=== PATIENT | female | born 1995 | race Caucasian/White ===

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

== ENCOUNTER 2017-02-01 09:06 | Emergency (ER) | payer BC, OTHER ==
[~2017-02-01] VITALS: Ht 165.1 cm; Wt 59.9 kg
[2017-02-01] MEDS ORDERED: SERT50TA PO (09:29)
[2017-02-01 10:47] LABS: BASO # 0.1 K/mm3 (0.0-0.2); BASO % 0.5 % (0.0-1.0); EOS # 0.2 K/mm3 (0.0-0.50); EOS % 1.5 % (0.0-3.0); LARGE UNSTAINED CELL # 0.1 K/mm3 (0.0-0.4); LARGE UNSTAINED CELL % 1.1 % (0.0-4.0); LYMPH # 2.3 K/mm3 (1.5-6.5); LYMPH % 19.4 % (24.0-44.0); MEAN CORPUSCULAR HEMOGLOBIN 29.1 pg (27.0-33.0); MEAN CORPUSCULAR HGB CONC 32.1 g/dl (32.0-36.5); MEAN CORPUSCULAR VOLUME 90.6 fl (80.0-96.0); MONO # 0.4 K/mm3 (0.0-0.8); MONO % 3.2 % (0.0-5.0); NEUTROPHILS # 8.3 K/mm3 (1.8-7.7); NEUTROPHILS % 74.3 % (36.0-66.0); PLATELET COUNT, AUTOMATED 257 k/mm3 (150-450); WHITE BLOOD COUNT 11.2 K/mm3 (4.0-10.0)
[2017-02-01 10:57] LABS: CONTROL LINE HCG INT CTR LINE PRESENT
[2017-02-01 11:07] LABS: ANION GAP 7 MEQ/L (8-16); BLOOD UREA NITROGEN 5 MG/DL (7-18); CALCIUM LEVEL 9.1 MG/DL (8.5-10.1); CARBON DIOXIDE LEVEL 28 MEQ/L (21-32); CHLORIDE LEVEL 105 MEQ/L (98-107); CREATININE FOR GFR 0.76 MG/DL (0.55-1.02); GLUCOSE, FASTING 82 MG/DL (70-105); POTASSIUM SERUM 3.9 MEQ/L (3.5-5.1); SODIUM LEVEL 140 MEQ/L (136-145)
--- NOTE | 2017-02-01 11:46 | REP ---
CT Head without contrast HISTORY: Syncope COMPARISON: 05/21/2011 There is no intraparenchymal hemorrhage, acute infarct, mass or midline shift. The ventricular system is normal in appearance. There is no extra cerebral collection. There is no fracture. The visualized sinuses are clear. IMPRESSION: There is no intracranial lesion. Signed by Braeden Ramos MD 02/01/2017 11:37 A
[2017-02-01 12:14] VITALS: BP 129/70
--- NOTE | 2017-02-01 12:17 | REP ---
SINGLE VIEW CHEST: There is no evidence of acute infiltrate. No pleural effusion is seen. The heart is normal in size. The mediastinal silhouette is unremarkable. The visualized osseous structures are intact. IMPRESSION: No acute pulmonary disease. Signed by Suleman Mathis MD 02/01/2017 07:46 P
--- NOTE | 2017-02-01 16:31 | ECGEPIP ---
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
== END 2017-02-01 12:18 | disposition home or self-care (01) ==
LOC: M ED 10:52
DX: R55 Syncope and collapse (principal); J45.909 Unspecified asthma, uncomplicated; F33.9 Major depressive disorder, recurrent, unspecified; S40.212A Abrasion of left shoulder, initial encounter; W19.XXXA Unspecified fall, initial encounter; Y92.89 Other specified places as the place of occurrence of the external cause; Y93.89 Activity, other specified; Y99.8 Other external cause status; Z79.899 Other long term (current) drug therapy; Z88.1 Allergy status to other antibiotic agents

== ENCOUNTER → 2017-03-19 | Outpatient (REF) | payer OTHER ==
[~2017-03-19] MED LIST changes: +CIPR-249 PO; -CIPR500T89 PO; +IBUP-1022 PO; -IBUP600T26 PO; +SERT50TA PO
== END ==
LOC: M LAB REF 13:53
PROVIDERS: ATTEND Physician Assistant Medical
DX: R30.0 Dysuria (principal)

== ENCOUNTER → 2017-04-11 | Outpatient (REF) | payer BC, OTHER | LOC: M LAB REF 11:21 | PROVIDERS: ATTEND Nurse Practitioner Family | DX: Z01.419 Encounter for gynecological examination (general) (routine) without abnormal findings (principal) ==

== ENCOUNTER 2017-08-17 08:57 | Day surgery (SDC) | payer BC, OTHER ==
[2017-08-17 10:37] LABS: CONTROL LINE UCG INT CTR LINE PRESENT
[2017-08-17] MEDS ORDERED: BUPIVACAINE HCL 0.5% 30 ML VIAL As Ordered (12:12)
[2017-08-17] MEDS ORDERED: fentaNYL 100 MCG/2 ML INJECTION (J3010) As Ordered ×2 (12:40→13:24)
[2017-08-17] MEDS ORDERED: dexameTHASONE 4 MG/ML 1ML VIAL (J1100) As Ordered ×2 (12:40)
[2017-08-17] MEDS ORDERED: MIDAZOLAM INJ 2 MG/2 ML VIAL (J2250) As Ordered (12:40)
[2017-08-17] MEDS ORDERED: PROPOFOL 200 MG/20 ML VIAL As Ordered (12:56)
[2017-08-17] MEDS ORDERED: LIDOCAINE 2% INJ 100 MG/5 ML SDV (FOR ANES.) As Ordered (12:57)
[2017-08-17] MEDS ORDERED: ONDANSETRON 4MG/2ML VIAL (J2405) As Ordered (12:57)
[2017-08-17] MEDS ORDERED: ONDANSETRON 4MG/2ML VIAL (J2405) IV (14:00)
[2017-08-17] MEDS ORDERED: LR 1,000 ML IV (14:00)
[2017-08-17] MEDS ORDERED: PERCOCET 5MG/325MG TAB PO (14:00)
[2017-08-17] MEDS ORDERED: fentaNYL 100 MCG/2 ML INJECTION (J3010) IV (14:00)
[2017-08-17] MEDS: IBUPROFEN 800 MG TAB PO (14:17)
== END 2017-08-17 17:11 | disposition home or self-care (01) ==
LOC: M SDC 08:57
DX: J35.01 Chronic tonsillitis (principal); J45.909 Unspecified asthma, uncomplicated; N17.9 Acute kidney failure, unspecified; T36.8X5A Adverse effect of other systemic antibiotics, initial encounter; F41.9 Anxiety disorder, unspecified; F32.9 Major depressive disorder, single episode, unspecified; Z88.1 Allergy status to other antibiotic agents; Z79.899 Other long term (current) drug therapy
CPT/HCPCS: 42826

== ENCOUNTER → 2017-09-02 | Outpatient (REF) | payer BC, OTHER ==
[2017-09-02 21:55] LABS: APPEARANCE, URINE HAZY (CLEAR); BACTERIA, URINE AUTO 2+ (NEGATIVE); BILIRUBIN, URINE AUTO NEGATIVE (NEGATIVE); BLOOD, URINE BLOOD NEGATIVE (NEGATIVE); COLOR, URINE YELLOW (YELLOW); GLUCOSE, URINE (UA) AUTO NEGATIVE (NEGATIVE); KETONE, URINE AUTO NEGATIVE (NEGATIVE); LEUKOCYTE ESTERASE, URINE AUTO NEGATIVE (NEGATIVE); MUCUS, URINE SMALL (NEGATIVE); NITRITE, URINE AUTO POSITIVE (NEGATIVE); PROTEIN, URINE AUTO NEGATIVE (NEGATIVE); RBC, URINE AUTO 2 /HPF (0-3); SPECIFIC GRAVITY URINE AUTO 1.019 (1.002-1.035); SQUAMOUS EPITHELIAL CELL UR AU 1 /HPF (0-6); UROBILINOGEN, URINE AUTO 0.2 mg/dL (0.0-2.0); WBC, URINE AUTO 20 /HPF (0-3)
== END ==
LOC: M LAB REF 21:29
DX: R30.0 Dysuria (principal)
CPT/HCPCS: 81001

== ENCOUNTER → 2018-01-11 | Outpatient (REF) | payer OTHER ==
[2018-01-11 14:34] LABS: AMORPHOUS SEDIMENT SMALL (NEGATIVE); APPEARANCE, URINE CLOUDY (CLEAR); BACTERIA, URINE AUTO 2+ (NEGATIVE); BILIRUBIN, URINE AUTO NEGATIVE (NEGATIVE); BLOOD, URINE BLOOD 3+ (NEGATIVE); COLOR, URINE YELLOW (YELLOW); GLUCOSE, URINE (UA) AUTO NEGATIVE (NEGATIVE); KETONE, URINE AUTO NEGATIVE (NEGATIVE); LEUKOCYTE ESTERASE, URINE AUTO 3+ (NEGATIVE); MUCUS, URINE SMALL (NEGATIVE); NITRITE, URINE AUTO NEGATIVE (NEGATIVE); PROTEIN, URINE AUTO 1+ mg/dL (NEGATIVE); RBC, URINE AUTO 100 /HPF (0-3); SPECIFIC GRAVITY URINE AUTO 1.014 (1.002-1.035); SQUAMOUS EPITHELIAL CELL UR AU 3 /HPF (0-6); UROBILINOGEN, URINE AUTO 0.2 mg/dL (0.0-2.0); WBC, URINE AUTO TNTC /HPF (0-3)
== END ==
LOC: M LAB REF 12:55
DX: N39.0 Urinary tract infection, site not specified (principal)

== ENCOUNTER → 2018-02-09 | Outpatient (REF) | payer OTHER | LOC: M LAB REF 13:32 | DX: N39.0 Urinary tract infection, site not specified (principal) ==

== ENCOUNTER → 2018-05-03 | Outpatient (REF) | payer OTHER ==
[2018-05-03 15:22] LABS: CHLAMYDIA DNA AMPLIFICATION POSITIVE (NEGATIVE); GC DNA AMPLIFICATION NEGATIVE (NEGATIVE)
== END ==
LOC: M SFHCWAGY 11:52
DX: Z12.4 Encounter for screening for malignant neoplasm of cervix (principal)

== ENCOUNTER → 2018-06-29 | Outpatient (REF) | payer OTHER ==
[2018-06-29 15:32] LABS: CHLAMYDIA DNA AMPLIFICATION NEGATIVE (NEGATIVE); GC DNA AMPLIFICATION NEGATIVE (NEGATIVE)
== END ==
LOC: M SFHCWAGY 13:12
DX: Z11.3 Encounter for screening for infections with a predominantly sexual mode of transmission (principal)

== ENCOUNTER → 2018-06-29 | Outpatient (REF) | payer OTHER ==
[2018-06-29 14:18] LABS: HIV 1&2 SCREEN CENTAUR NEGATIVE (NEGATIVE)
== END ==
LOC: M SFHCWAGY 11:29
DX: Z11.3 Encounter for screening for infections with a predominantly sexual mode of transmission (principal); Z11.4 Encounter for screening for human immunodeficiency virus [HIV]

== ENCOUNTER → 2018-09-14 | Outpatient (REF) | payer OTHER ==
[~2018-09-14] MED LIST changes: +MONOTAB PO; -ZOFR20TA PO; +ZOFR4TAB16 PO
[2018-09-14 12:26] LABS: HEMATOCRIT 39.8 % (36.0-47.0); HEMOGLOBIN 12.9 g/dl (12.0-15.5); MEAN CORPUSCULAR HEMOGLOBIN 28.9 pg (27.0-33.0); MEAN CORPUSCULAR HGB CONC 32.4 g/dl (32.0-36.5); MEAN CORPUSCULAR VOLUME 89.2 fl (80.0-96.0); PLATELET COUNT, AUTOMATED 263 10^3/uL (150-450); RED BLOOD COUNT 4.46 10^6/uL (4.00-5.40); WHITE BLOOD COUNT 10.3 10^3/uL (4.0-10.0)
[2018-09-14 13:04] LABS: HCG, SERUM QUANTITATIVE 34228 MIU/ML
[2018-09-17 10:49] LABS: RUBELLA IgG QUALITATIVE IMMUNE (IMMUNE)
[2018-09-17 11:17] LABS: HEPATITIS C VIRUS ABY INDEX 0.1 INDEX (<0.8)
[2018-09-17 11:18] LABS: HIV 1&2 SCREEN CENTAUR NEGATIVE (NEGATIVE)
== END ==
LOC: M LAB REF 12:12
PROVIDERS: ATTEND Obstetrics & Gynecology
DX: O36.80X0 Pregnancy with inconclusive fetal viability, not applicable or unspecified (principal)

== ENCOUNTER → 2018-10-18 | Outpatient (REF) | payer OTHER | LOC: M LAB REF 16:45 | PROVIDERS: ATTEND Obstetrics & Gynecology | DX: Z34.01 Encounter for supervision of normal first pregnancy, first trimester (principal); Z3A.01 Less than 8 weeks gestation of pregnancy ==

== ENCOUNTER → 2018-11-17 | Outpatient (REF) | payer OTHER ==
[2018-11-17 20:45] LABS: INFLUENZA A AMPLIFICATION NEGATIVE (NEGATIVE); INFLUENZA B AMPLIFICATION NEGATIVE (NEGATIVE)
== END ==
LOC: M LAB REF 13:54
PROVIDERS: ATTEND Physician Assistant Medical
DX: J11.1 Influenza due to unidentified influenza virus with other respiratory manifestations (principal)

== ENCOUNTER → 2018-12-28 | Outpatient (CLI) | payer BC, OTHER ==
[~2018-12-28] MED LIST changes: +SERT-141 PO; -SERT50TA PO
[2019-01-02 00:06] LABS: ANTI PARVO VIRUS LEVEL IGG 5.2 index (0.0-0.8); ANTI PARVO VIRUS LEVEL IgM 0.2 index (0.0-0.8)
== END ==
LOC: M LAB 18:52
PROVIDERS: ATTEND Advanced Practice Midwife
DX: Z20.828 Contact with and (suspected) exposure to other viral communicable diseases (principal); Z3A.00 Weeks of gestation of pregnancy not specified

== ENCOUNTER → 2019-01-10 | Outpatient (REF) | payer OTHER ==
[2019-01-12 00:06] LABS: ANTI PARVO VIRUS LEVEL IGG 4.8 index (0.0-0.8); ANTI PARVO VIRUS LEVEL IgM 0.1 index (0.0-0.8)
== END ==
LOC: M LAB REF 12:58
PROVIDERS: ATTEND Nurse Practitioner Women's Health
DX: Z20.89 Contact with and (suspected) exposure to other communicable diseases (principal)

== ENCOUNTER → 2019-02-08 | Outpatient (REF) | payer OTHER | LOC: M LAB REF 15:25 | PROVIDERS: ATTEND Obstetrics & Gynecology | DX: N39.0 Urinary tract infection, site not specified (principal) ==

== ENCOUNTER → 2019-02-14 | Outpatient (CLI) | payer BC, OTHER ==
[2019-02-14 09:31] LABS: HEMATOCRIT 33.9 % (36.0-47.0); MEAN CORPUSCULAR HEMOGLOBIN 31.3 pg (27.0-33.0); MEAN CORPUSCULAR HGB CONC 32.4 g/dl (32.0-36.5); MEAN CORPUSCULAR VOLUME 96.3 fl (80.0-96.0); PLATELET COUNT, AUTOMATED 182 10^3/uL (150-450); RED BLOOD COUNT 3.52 10^6/uL (4.00-5.40); WHITE BLOOD COUNT 13.1 10^3/uL (4.0-10.0)
== END ==
LOC: M LAB 07:47
PROVIDERS: ATTEND Obstetrics & Gynecology
DX: Z34.82 Encounter for supervision of other normal pregnancy, second trimester (principal)

== ENCOUNTER → 2019-04-02 | Outpatient (REF) | payer OTHER | LOC: M LAB REF 13:18 | PROVIDERS: ATTEND Obstetrics & Gynecology | DX: Z34.03 Encounter for supervision of normal first pregnancy, third trimester (principal) ==

== ENCOUNTER 2019-04-27 18:49 | Inpatient (IN) | payer BC, OTHER ==
[~2019-04-27] VITALS: Ht 167.6 cm; Wt 71.8 kg
[2019-04-27] VITALS (19 sets, daily range): BP systolic 78–141; BP diastolic 44–93
[2019-04-27] MEDS ORDERED: MULTTAB20 PO (19:10)
[2019-04-27] MEDS ORDERED: LR 1,000 ML IV SCH (20:18)
[2019-04-27] MEDS ORDERED: LACTATED RINGER'S 1000 ML IV STA (20:18)
[2019-04-27] MEDS ORDERED: FENTANYL 2MCG/ML ROPIVACAINE 0.2% IN 0.9% NACL 100ML IVBAG As Ordered ONE (20:36)
[2019-04-27 20:42] LABS: HEMATOCRIT 35.6 % (36.0-47.0); HEMOGLOBIN 11.8 g/dl (12.0-15.5); MEAN CORPUSCULAR HEMOGLOBIN 30.6 pg (27.0-33.0); MEAN CORPUSCULAR HGB CONC 33.1 g/dl (32.0-36.5); MEAN CORPUSCULAR VOLUME 92.2 fl (80.0-96.0); PLATELET COUNT, AUTOMATED 148 10^3/uL (150-450); RED BLOOD COUNT 3.86 10^6/uL (4.00-5.40); WHITE BLOOD COUNT 18.2 10^3/uL (4.0-10.0)
[2019-04-27] MEDS ORDERED: EPIDURAL/PCA KEYS XX PRN (20:49)
[2019-04-27] MEDS ORDERED: diphenhydrAMINE INJ 50MG/ML VIAL (J1200) IV PRN (20:49)
[2019-04-27] MEDS ORDERED: LACTATED RINGER'S 1000 ML IV PRN (20:49)
[2019-04-27] MEDS ORDERED: REFRIGERATOR IV KEYS XX PRN (20:49)
[2019-04-27] MEDS ORDERED: EPIDURAL COMMENT XX SCH (20:49)
[2019-04-27] MEDS ORDERED: FENTANYL/ROPIVACAINE/NACL BAG 100 ML EPIDURAL SCH (20:49)
[2019-04-27] MEDS ORDERED: ePHEDrine SULFATE 25 MG/5 ML(5MG/ML) SYRINGE IV PRN (20:49)
[2019-04-27] MEDS ORDERED: NALOXONE INJ 0.4 MG/1 ML VIAL (J2310) IV PRN (20:49)
[2019-04-27] MEDS ORDERED: ONDANSETRON 4MG/2ML VIAL (J2405) IV PRN (20:49)
[2019-04-28] VITALS (8 sets, daily range): BP systolic 97–131; BP diastolic 51–70
[2019-04-28] MEDS ORDERED: OXYTOCIN 30 UNITS IN 0.9% NaCl 500ML IV BAG (J2590) As Ordered ONE (00:33)
[2019-04-28 02:14] LABS: CORD GAS ABE A -12.8; CORD GAS HCO3 A 18.3 MEQ/L; CORD GAS PCO2 A 62.9 mmHg; CORD GAS PH A 7.082 UNITS; CORD GAS PO2 A 40.7 mmHg; CORD GAS SBC A 14.3 MEQ/L; CORD GAS TCO2 A 20.2 MEQ/L
[2019-04-28] MEDS ORDERED: OXYTOCIN DRIP 30 UNITS in APPROPRIATE DILUENT 1 EA IV SCH (02:16)
[2019-04-28 02:17] LABS: CORD GAS ABE V -10.4; CORD GAS HCO3 V 18.4 MEQ/L; CORD GAS O2 SAT V 58.8 %; CORD GAS PH V 7.175 UNITS; CORD GAS PO2 V 30.6 mmHg; CORD GAS SBC V 15.6 MEQ/L
[2019-04-28] MEDS ORDERED: ANUSOL HC CREAM 30GM TOP PRN (02:30)
[2019-04-28] MEDS ORDERED: DOCUSATE SODIUM 100 MG CAP PO PRN (02:30)
[2019-04-28] MEDS ORDERED: IBUPROFEN 600 MG TAB PO PRN (02:30)
[2019-04-28] MEDS ORDERED: MOM 30ML SUSPENSION UDC PO PRN (02:30)
[2019-04-28] MEDS ORDERED: ACETAMINOPHEN 500 MG TAB PO PRN (02:30)
[2019-04-28] MEDS ORDERED: MEASLES,MUMPS,RUBELLA VACCINE INJ (MMR-II) (90707) SC SCH (02:30)
[2019-04-28] MEDS ORDERED: METHYLERGONOVINE MALEATE 0.2 MG TAB PO PRN (02:30)
[2019-04-28] MEDS ORDERED: RHOGAM 300 MCG (1500 IU) INJ (J2790) IM SCH (02:30)
[2019-04-28] MEDS ORDERED: IBUPROFEN 800 MG TAB PO PRN (02:30)
[2019-04-28] MEDS ORDERED: ACETAMINOPHEN TAB 650MG DOSE (2X325MG) PO PRN (02:30)
[2019-04-28] MEDS ORDERED: DIBUCAINE 1% OINTMENT 30GM TOP PRN (02:30)
--- NOTE | 2019-04-28 07:51 | HPE ---
DATE OF ADMISSION: 04/27/2019 REASON FOR ADMISSION: Labor. HISTORY OF PRESENT ILLNESS: Ms. Martin is a 24-year-old, 1 at 38 weeks 6 days estimated gestational age by first trimester ultrasound with complaints of contractions. She reports contractions throughout the day that increase in intensity and frequency. She reports active movement. She denies any vaginal bleeding or leakage of fluid. Her course has been unremarkable. She initiated care in her first trimester at a [facility] and has been appropriate throughout. PAST MEDICAL HISTORY: Exercised induced asthma. PAST SURGICAL HISTORY: Tonsillectomy and left ear surgery. PAST OBSTETRICAL HISTORY: She is a 1. MEDICATIONS: Include: vitamins. ALLERGIES: CIPROFLOXACIN. PHYSICAL EXAMINATION: VITAL SIGNS: Stable. She is afebrile. heart rate 140s-150s, moderate variability. Spontaneous excels, no decelerations, contractions on tocometer. GENERAL APPEARANCE: Well appearing, in no acute distress. LUNGS: Clear to auscultation bilaterally. CARDIOVASCULAR: Heart regular rate and rhythm. ABDOMEN: Gravid and nontender. Estimated weight (EFW) is 3200 grams. CERVICAL EXAM: She is 5 cm dilated, completely effaced and 0 station with a bulging bag of membranes. LABS: Her blood type is B positive. Antibody screen is negative. Rubella is immune. RPR is nonreactive. Hepatitis surface antigen is negative. HIV is negative. Hepatitis C is nonreactive. Chlamydia and gonorrhea screens were negative. She had a normal 1-hour Glucola. She is Group B streptococcus (GBS) negative. ASSESSMENT: 1. Ms. Martin is a 24-year-old gravid 1 at 38 weeks 6 days estimated gestational age in active labor. 2. Reassuring status. PLAN: 1. Admit to labor and delivery, CBC, RPR, type and screen. 2. Patient is a good candidate for an epidural. 3. Anticipate spontaneous vaginal delivery. cc: Fan Buchanan DO
--- NOTE | 2019-04-28 08:53 | DN ---
DATE OF DELIVERY: 04/28/2019 TIME OF : 0153 SCORES: 8 and 9. GENDER: Male WEIGHT: 3470 grams, 7 pounds 15 ounces ANESTHESIA: Epidural. LACERATIONS: None. COUNTS: Five laparotomy sponges accounted for prior to and after delivery. Two sharps removed from the delivery field. CORD GASES: 7.08, 7.17, base excesses are -12.8 and -10.4. DELIVERY NOTE: On the April at 0153 Ms. Martin a 24-year-old 1, now para 1 had a spontaneous vaginal delivery of a live born male infant. scores 8 and 9, weight was 3470 grams, 7 pounds 15 ounces. Head was delivered occipitoanterior (OA) over intact peritoneum followed by delivery of a shoulders and corpus. was handed to the mom with a good cry. Cord was clamped times two and then was cut. Cord gas was obtained. Placenta was then drained and delivered grossly intact. A premix bag of 500 mL of normal saline with 30 units of Pitocin was then bolused along with uterine massage until the uterus was firm. Upon inspection the cervix, vagina, and perineum was grossly intact and hemostatic. Mom and baby recovering in stable condition. The couple decided to name their son, Rubén.
[2019-04-28] MEDS: PRENATAL VITAMINS CHEWABLE TABLET PO SCH (09:42)
[2019-04-29 06:00] VITALS: BP 106/58
[2019-04-29] MEDS: PRENATAL VITAMINS CHEWABLE TABLET PO SCH (10:06)
[2019-04-29 17:45] VITALS: BP 118/79
[2019-04-29] MEDS ORDERED: IBUP80TA PO (19:45)
== END 2019-04-29 20:50 | disposition home or self-care (01) | DRG 560 ==
LOC: M LDO 18:49 → M LDI 19:55 → M OBS 04-28 04:34
PROVIDERS: ADMIT Obstetrics & Gynecology; ATTEND Obstetrics & Gynecology
PROC: 10E0XZZ Delivery of Products of Conception, External Approach (ICD-10-PCS; principal; 2019-04-28)
DX: O80 Encounter for full-term uncomplicated delivery (principal); Z3A.38 38 weeks gestation of pregnancy; Z37.0 Single live birth

== ENCOUNTER → 2019-07-11 | Outpatient (REF) | payer OTHER ==
[~2019-07-11] MED LIST changes: +IBUP80TA PO; +MULTTAB20 PO
== END ==
LOC: M LAB REF 12:04
PROVIDERS: ATTEND Physician Assistant
DX: J02.9 Acute pharyngitis, unspecified (principal)

== ENCOUNTER → 2019-10-23 | Outpatient (REF) | payer OTHER ==
[2019-10-23 18:53] LABS: INFLUENZA A AMPLIFICATION NEGATIVE (NEGATIVE); INFLUENZA B AMPLIFICATION NEGATIVE (NEGATIVE)
== END ==
LOC: M LAB REF 09:14
PROVIDERS: ATTEND Physician Assistant Medical
DX: R50.9 Fever, unspecified (principal)

== ENCOUNTER → 2020-03-09 | Outpatient (CLI) | payer SELFPAY | LOC: M LABSMTC 09:52 | PROVIDERS: ATTEND Pediatrics | DX: Z20.828 Contact with and (suspected) exposure to other viral communicable diseases (principal); Z11.59 Encounter for screening for other viral diseases ==

== ENCOUNTER → 2020-07-06 | Outpatient (CLI) | payer BC, OTHER ==
[2020-07-06 12:16] LABS: HEMATOCRIT 35.6 % (36.0-47.0); HEMOGLOBIN 11.1 g/dl (12.0-15.5); MEAN CORPUSCULAR HEMOGLOBIN 29.4 pg (27.0-33.0); MEAN CORPUSCULAR HGB CONC 31.2 g/dl (32.0-36.5); MEAN CORPUSCULAR VOLUME 94.4 fl (80.0-96.0); PLATELET COUNT, AUTOMATED 227 10^3/uL (150-450); RED BLOOD COUNT 3.77 10^6/uL (4.00-5.40); WHITE BLOOD COUNT 14.8 10^3/uL (4.0-10.0)
== END ==
LOC: M LAB 10:06
PROVIDERS: ATTEND Advanced Practice Midwife
DX: Z34.82 Encounter for supervision of other normal pregnancy, second trimester (principal); Z3A.00 Weeks of gestation of pregnancy not specified

== ENCOUNTER → 2020-09-01 | Outpatient (REF) | payer OTHER | LOC: M LAB REF 11:21 | PROVIDERS: ATTEND Advanced Practice Midwife | DX: Z34.83 Encounter for supervision of other normal pregnancy, third trimester (principal); Z3A.00 Weeks of gestation of pregnancy not specified ==

== ENCOUNTER → 2020-09-09 | Outpatient (CLI) | payer SELFPAY ==
[~2020-09-09] MED LIST changes: +ACET-683 PO; +FERR325T81 PO
== END ==
LOC: M LABSMTC 13:39
PROVIDERS: ATTEND Pediatrics
DX: Z20.822 Contact with and (suspected) exposure to COVID-19 (principal)

== ENCOUNTER 2020-09-27 12:26 | Inpatient (IN) | payer BC, OTHER ==
[~2020-09-27] VITALS: Ht 165.1 cm; Wt 81.4 kg
[2020-09-27] VITALS (13 sets, daily range): BP systolic 115–147; BP diastolic 58–86
[~2020-09-27 12:26] MED LIST changes: -ACET-683 PO; -FERR325T81 PO
[2020-09-27] MEDS ORDERED: FERR325T81 PO (12:45)
[2020-09-27] MEDS ORDERED: AMPICILLIN SOD 2 GM in D5W MINI-BAG PLUS 100 ML IV STA (13:01)
[2020-09-27] MEDS ORDERED: LACTATED RINGER'S 1000 ML IV STA (13:01)
[2020-09-27] MEDS ORDERED: LR 1,000 ML IV SCH (13:01)
[2020-09-27 13:42] LABS: HEMOGLOBIN 12.2 g/dl (12.0-15.5); MEAN CORPUSCULAR HEMOGLOBIN 29.5 pg (27.0-33.0); MEAN CORPUSCULAR HGB CONC 32.1 g/dl (32.0-36.5); MEAN CORPUSCULAR VOLUME 91.8 fl (80.0-96.0); PLATELET COUNT, AUTOMATED 182 10^3/uL (150-450); RED BLOOD COUNT 4.14 10^6/uL (4.00-5.40); WHITE BLOOD COUNT 20.1 10^3/uL (4.0-10.0)
[2020-09-27] MEDS ORDERED: FENTANYL 2MCG/ML ROPIVACAINE 0.2% IN 0.9% NACL 100ML IVBAG As Ordered ONE (15:18)
[2020-09-27] MEDS ORDERED: EPIDURAL COMMENT XX SCH (15:45)
[2020-09-27] MEDS ORDERED: ePHEDrine SULFATE 25 MG/5 ML(5MG/ML) SYRINGE IV PRN (15:45)
[2020-09-27] MEDS ORDERED: REFRIGERATOR IV KEYS XX PRN (15:45)
[2020-09-27] MEDS ORDERED: FENTANYL/ROPIVACAINE/NACL BAG 100 ML EPIDURAL SCH (15:45)
[2020-09-27] MEDS ORDERED: OXYTOCIN DRIP 30 UNITS in IV 1 EA IV SCH ×2 (15:45→17:00)
[2020-09-27] MEDS ORDERED: LACTATED RINGER'S 1000 ML IV PRN (15:45)
[2020-09-27] MEDS ORDERED: EPIDURAL/PCA KEYS XX PRN (15:45)
[2020-09-27] MEDS ORDERED: NALOXONE INJ 0.4MG/1ML VIAL (J2310 PER 1MG) IV PRN (15:45)
[2020-09-27] MEDS ORDERED: diphenhydrAMINE 50MG/ML VIAL (J1200) IV PRN (15:45)
[2020-09-27] MEDS ORDERED: ONDANSETRON 4MG/2ML VIAL IV PRN (15:45)
[2020-09-27 16:34] LABS: CORD GAS ABE V -3.4; CORD GAS HCO3 V 20.7 MEQ/L; CORD GAS O2 SAT V 67.6 %; CORD GAS PCO2 V 34.8 mmHg; CORD GAS PH V 7.393 UNITS; CORD GAS PO2 V 28.8 mmHg; CORD GAS TCO2 V 21.8 MEQ/L
[2020-09-27 16:36] LABS: CORD GAS ABE A -3.7; CORD GAS HCO3 A 21.9 MEQ/L; CORD GAS O2 SAT A 17.8 %; CORD GAS PCO2 A 41.5 mmHg; CORD GAS PH A 7.34 UNITS; CORD GAS PO2 A 11.9 mmHg; CORD GAS SBC A 19.7 MEQ/L; CORD GAS TCO2 A 23.2 MEQ/L
[2020-09-27] MEDS ORDERED: IBUPROFEN 600MG TAB PO PRN (16:45)
[2020-09-27] MEDS ORDERED: DOCUSATE SODIUM 100MG CAPSULE PO PRN (16:45)
[2020-09-27] MEDS ORDERED: MEASLES,MUMPS,RUBELLA VACCINE INJ (MMR-II) (90707) SC SCH (16:45)
[2020-09-27] MEDS ORDERED: BENZOCAINE 20% HEMORRHOIDAL OINTMENT 28GM TUBE TOP PRN (16:45)
[2020-09-27] MEDS ORDERED: METHYLERGONOVINE MALEATE 0.2 MG TAB PO PRN (16:45)
[2020-09-27] MEDS ORDERED: ANUSOL HC CREAM 30GM TOP PRN (16:45)
[2020-09-27] MEDS ORDERED: ACETAMINOPHEN TAB 650MG DOSE (2X325MG) PO PRN (16:45)
[2020-09-27] MEDS ORDERED: RHOGAM 300 MCG (1500 IU) INJ (J2790) IM SCH (16:45)
[2020-09-27] MEDS ORDERED: AMPICILLIN SOD 1 GM in D5W MINI-BAG PLUS 50 ML IV SCH (17:00)
--- NOTE | 2020-09-27 19:01 | HPE ---
HISTORY AND PHYSICAL DATE OF ADMISSION: 09/27/2020 HISTORY OF PRESENT ILLNESS: Shannan is a 25-year-old female, 2, para 1-0-0-1, with an estimated date of confinement (EDC) of 10/02/2020, estimated gestational age (EGA) 39 weeks gestation, who is being admitted after complaints of contractions every 3-4 minutes. She was found to be in active labor. That was when the decision was made for admission. Her record reviewed, was essentially unremarkable. LABORATORIES: Blood type B positive. Rubella immune. Hepatitis negative. Human immunodeficiency virus negative. Gonorrhea and chlamydia negative. One-hour sugar tested was within normal limits. Her group B Streptococcus (GBS) is positive. PAST MEDICAL HISTORY: Significant for asthma, sports induced, patient not currently on any medication., PAST SURGICAL HISTORY: 1. Tonsillectomy. 2. Ear surgery. SOCIAL HISTORY: She denies any alcohol, drugs or cigarette smoking. REVIEW OF SYSTEMS: Unremarkable. MEDICATIONS: - vitamins ALLERGIES: CIPROFLOXACIN. FAMILY HISTORY: Significant for pancreatic cancer and diabetes. PHYSICAL EXAMINATION: Normal appearing female in no acute distress. ABDOMEN: Soft, nontender, non-distended. EXTREMITIES: No clubbing, cyanosis or edema. VAGINAL EXAM: 8 cm, 100% dilated, fetus at minus gestation in vertex position with a bulging membrane. Tracing reviewed. Category 1 tracing. Contractions every 3-4 minutes. ASSESSMENT: 1. Intrauterine at 39+ weeks gestation in active labor. 2. Group B Streptococcus (GBS) positive. PLAN: Admit to labor and delivery. Routine labs sent. Pain management discussed. Patient opted for an epidural. Ampicillin started for GBS prophylaxis. Will continue on the monitor. Anticipate delivery.
[2020-09-27] MEDS: IBUPROFEN 800 MG TAB PO PRN (21:02)
[2020-09-28] MEDS: ACETAMINOPHEN 500 MG TAB PO PRN ×2 (01:52→10:58)
[2020-09-28 06:00] VITALS: BP 126/69
[2020-09-28] MEDS: IBUPROFEN 800 MG TAB PO PRN ×2 (06:42→18:10)
[2020-09-28] MEDS: PRENATAL VITAMINS CHEWABLE TABLET PO SCH (08:34)
--- NOTE | 2020-09-28 13:55 | DN ---
DELIVERY NOTE DATE OF DELIVERY: 09/27/2020 TIME OF : GENDER: Female APGARS: 8 and 9 LACERATIONS: None ANESTHESIA: ESTIMATED BLOOD LOSS:250 mL COUNTS: DESCRIPTION OF DELIVERY: Shannan is a 25-year-old female 2, para 1-0-0-1, who was admitted at term in active labor. She progressed to fully dilated after artificial rupture of membrane and an epidural. She then pushed for less than ten minutes and delivered a live female infant in left occiput anterior position over an intact perineum. 8 and 9. weight 8 pounds 12 ounces. Placenta delivered spontaneously intact with three-vessel cord. Perineum, vagina, and cervix inspected with no lacerations noted. Estimated blood loss 250 mL. Both mother and baby in stable condition.
[2020-09-28 18:00] VITALS: BP 139/86
[2020-09-29] MEDS: IBUPROFEN 800 MG TAB PO PRN (04:32)
[2020-09-29 06:00] VITALS: BP 130/72
[2020-09-29] MEDS: PRENATAL VITAMINS CHEWABLE TABLET PO SCH (08:00)
[2020-09-29] MEDS ORDERED: ACET-683 PO (08:10)
[2020-09-29] MEDS ORDERED: IBUP80TA PO (08:10)
[2020-09-29] MEDS ORDERED: BOOSTRIX/ADACEL VACCINE (DIPHTH/PERTUSS/ACELL/TETANUS) 0.5ML SYR IM ONE (09:00)
[2020-09-29] MEDS: ACETAMINOPHEN 500 MG TAB PO PRN (09:26)
== END 2020-09-29 17:30 | disposition home or self-care (01) | DRG 560 ==
LOC: M LDO 12:26 → M LDI 13:01 → M OBS 19:25
PROVIDERS: ADMIT Obstetrics & Gynecology; ATTEND Obstetrics & Gynecology
PROC: 10E0XZZ Delivery of Products of Conception, External Approach (ICD-10-PCS; principal; 2020-09-27)
PROC: 10907ZC Drainage of Amniotic Fluid, Therapeutic from Products of Conception, Via Natural or Artificial Opening (ICD-10-PCS; 2020-09-27)
DX: O99.824 Streptococcus B carrier state complicating childbirth (principal); Z3A.39 39 weeks gestation of pregnancy; Z37.0 Single live birth

== ENCOUNTER → 2020-12-28 | Outpatient (CLI) | payer SELFPAY ==
[~2020-12-28] MED LIST changes: +ACET-683 PO; +FERR325T81 PO
== END ==
LOC: M LABSMTC 09:49
PROVIDERS: ATTEND Pediatrics
DX: Z11.52 Encounter for screening for COVID-19 (principal)

== ENCOUNTER → 2023-10-25 | Outpatient (CLI) | payer MEDICAID, OTHER ==
[~2023-10-25] MED LIST changes: +MONT-5 PO; -SING10TA32 PO
[2023-10-25 16:39] LABS: HEMATOCRIT 37.6 % (36.0-47.0); HEMOGLOBIN 12.3 g/dl (12.0-15.5); MEAN CORPUSCULAR HEMOGLOBIN 29.5 pg (27.0-33.0); MEAN CORPUSCULAR HGB CONC 32.7 g/dl (32.0-36.5); MEAN CORPUSCULAR VOLUME 90.2 fl (80.0-96.0); PLATELET COUNT, AUTOMATED 275 10^3/uL (150-450); RED BLOOD COUNT 4.17 10^6/uL (4.00-5.40); WHITE BLOOD COUNT 10.9 10^3/uL (4.0-10.0)
[2023-10-25 17:33] LABS: HIV 1&2 SCREEN NEGATIVE (NEGATIVE)
[2023-10-25 17:40] LABS: HEPATITIS C VIRUS ABY INDEX 0.05 INDEX (<0.8)
[2023-10-25 18:26] LABS: GC DNA AMPLIFICATION NEGATIVE (NEGATIVE)
== END ==
LOC: M PLALAB 14:31
PROVIDERS: ATTEND Advanced Practice Midwife
DX: Z34.81 Encounter for supervision of other normal pregnancy, first trimester (principal)

== ENCOUNTER → 2024-01-31 | Outpatient (CLI) | payer MEDICAID, OTHER | LOC: M WHC 07:56 | PROVIDERS: ATTEND Advanced Practice Midwife | DX: Z34.82 Encounter for supervision of other normal pregnancy, second trimester (principal) ==

== ENCOUNTER → 2024-02-14 | Outpatient (CLI) | payer OTHER ==
[2024-02-14 18:07] LABS: HEPATITIS B SURFACE ANTIGEN NEGATIVE (NEGATIVE)
[2024-02-14 18:20] LABS: HIV 1&2 SCREEN NEGATIVE (NEGATIVE)
[2024-02-14 18:28] LABS: HEPATITIS C VIRUS ABY INDEX < 0.02 INDEX (<0.8)
[2024-02-14 18:52] LABS: GC DNA AMPLIFICATION NEGATIVE (NEGATIVE)
== END ==
LOC: M PLALAB 15:39
PROVIDERS: ATTEND Advanced Practice Midwife
DX: Z34.82 Encounter for supervision of other normal pregnancy, second trimester (principal)

== ENCOUNTER → 2024-03-15 | Outpatient (CLI) | payer OTHER ==
[2024-03-15 18:32] LABS: HEMATOCRIT 31.6 % (36.0-47.0); HEMOGLOBIN 10.2 g/dl (12.0-15.5); MEAN CORPUSCULAR HEMOGLOBIN 30.4 pg (27.0-33.0); MEAN CORPUSCULAR HGB CONC 32.3 g/dl (32.0-36.5); PLATELET COUNT, AUTOMATED 198 10^3/uL (150-450); RED BLOOD COUNT 3.36 10^6/uL (4.00-5.40); WHITE BLOOD COUNT 12.5 10^3/uL (4.0-10.0)
== END ==
LOC: M PLALAB 15:10
PROVIDERS: ATTEND Advanced Practice Midwife
DX: Z34.83 Encounter for supervision of other normal pregnancy, third trimester (principal)

== ENCOUNTER → 2024-05-13 | Outpatient (REF) | payer OTHER | LOC: M PLALAB 08:25 | PROVIDERS: ATTEND Obstetrics & Gynecology | DX: Z36.89 Encounter for other specified antenatal screening (principal); Z3A.36 36 weeks gestation of pregnancy ==

== ENCOUNTER 2024-06-05 22:09 | Inpatient (IN) | payer OTHER ==
[~2024-06-05] VITALS: Ht 165.1 cm; Wt 78.2 kg
[2024-06-05 22:21] VITALS: BP 122/86
[2024-06-05] MEDS ORDERED: TUMS500C PO (22:22)
[2024-06-05] MEDS ORDERED: TRANEXAMIC ACID INJection 1,000 MG in NS 100 ML IV PRN (22:55)
[2024-06-05] MEDS ORDERED: METHYLERGONOVINE MALEATE 0.2MG/ML 1ML VIAL IM PRN (22:55)
[2024-06-05] MEDS ORDERED: LIDOCAINE 1% MDV 20ML VIAL INFIL PRN (22:55)
[2024-06-05] MEDS ORDERED: OXYTOCIN INJ 10UNITS/ML 1ML VIAL IM PRN (22:55)
[2024-06-05] MEDS ORDERED: CARBOPROST TROMETHAMINE 250 MCG/ML AMP IM PRN (22:55)
[2024-06-05] MEDS ORDERED: OXYTOCIN DRIP 30 UNITS in IV 1 EA IV PRN (22:55)
[2024-06-05 22:57] VITALS: BP 135/85
[2024-06-05 23:19] LABS: HEMATOCRIT 39.7 % (36.0-47.0); HEMOGLOBIN 12.8 g/dl (12.0-15.5); MEAN CORPUSCULAR HEMOGLOBIN 29.8 pg (27.0-33.0); MEAN CORPUSCULAR HGB CONC 32.2 g/dl (32.0-36.5); MEAN CORPUSCULAR VOLUME 92.3 fl (80.0-96.0); PLATELET COUNT, AUTOMATED 175 10^3/uL (150-450); WHITE BLOOD COUNT 16.2 10^3/uL (4.0-10.0)
[2024-06-06 00:28] LABS: HEPATITIS C VIRUS ABY INDEX < 0.02 INDEX (<0.8)
[2024-06-06 01:39] VITALS: BP 145/82
[2024-06-06 01:55] VITALS: BP 135/79
[2024-06-06] MEDS ORDERED: DIBUCAINE 1% OINTMENT 30GM TOP PRN (02:00)
[2024-06-06] MEDS ORDERED: ACETAMINOPHEN 325 MG TAB PO PRN (02:00)
[2024-06-06] MEDS ORDERED: METHYLERGONOVINE MALEATE 0.2 MG TAB PO PRN (02:00)
[2024-06-06] MEDS ORDERED: IBUPROFEN 600MG TAB PO PRN (02:00)
[2024-06-06] MEDS ORDERED: DOCUSATE SODIUM 100MG CAPSULE PO PRN (02:00)
[2024-06-06 02:10] VITALS: BP 125/76
[2024-06-06 04:05] VITALS: BP 126/74; O2SAT 95
[2024-06-06 05:54] VITALS: BP 117/71; O2SAT 96
[2024-06-06] MEDS: ACETAMINOPHEN 500 MG TAB PO PRN (06:08)
[2024-06-06] MEDS: PRENATAL VITAMINS CHEWABLE TABLET PO SCH (09:00)
[2024-06-06] MEDS: IBUPROFEN 800 MG TAB PO PRN (15:06)
[2024-06-06 18:00] VITALS: BP 123/61; O2SAT 96
[2024-06-07 05:59] VITALS: BP 127/74; O2SAT 98
[2024-06-07] MEDS: RHOGAM 300MCG (1500IU) INJ IM SCH (07:12)
[2024-06-07] MEDS ORDERED: ACET-683 PO (10:36)
[2024-06-07] MEDS ORDERED: IBUP-1022 PO (10:36)
[2024-06-07] MEDS ORDERED: COLA100C5 PO (10:36)
[2024-06-08] MEDS ORDERED: MEASLES,MUMPS,RUBELLA VACCINE INJ (MMR-II) SC.IMMUN ONE (09:00)
== END 2024-06-07 13:30 | disposition home or self-care (01) | DRG 560 ==
LOC: M LDO 22:09 → M LDI 23:00 → M OBS 06-06 03:59
PROVIDERS: ADMIT Advanced Practice Midwife; ATTEND Advanced Practice Midwife
PROC: 10E0XZZ Delivery of Products of Conception, External Approach (ICD-10-PCS; principal; 2024-06-06)
PROC: 0HQ9XZZ Repair Perineum Skin, External Approach (ICD-10-PCS; 2024-06-06)
PROC: 10907ZC Drainage of Amniotic Fluid, Therapeutic from Products of Conception, Via Natural or Artificial Opening (ICD-10-PCS; 2024-06-06)
DX: O70.0 First degree perineal laceration during delivery (principal); Z88.1 Allergy status to other antibiotic agents; Z3A.39 39 weeks gestation of pregnancy; Z37.0 Single live birth

== ENCOUNTER → 2025-03-03 | Outpatient (REF) | payer OTHER ==
[~2025-03-03] MED LIST changes: -ADV100INH INH; +ADVA1AER8 INH; +COLA100C5 PO; +TUMS500C PO
[2025-03-03 17:58] LABS: Trichomonas vaginalis (AMP) NOT DETECTED (NEGATIVE)
[2025-03-03 18:22] LABS: GC DNA AMPLIFICATION NEGATIVE (NEGATIVE)
== END ==
LOC: M PLALAB 15:06
PROVIDERS: ATTEND Advanced Practice Midwife
DX: Z11.3 Encounter for screening for infections with a predominantly sexual mode of transmission (principal); Z12.4 Encounter for screening for malignant neoplasm of cervix
CPT/HCPCS: 87661; 87810; 87850; G0123